=== PATIENT | female | born 1945 | race Caucasian/White ===

== ENCOUNTER 2017-03-04 08:42 | Inpatient (IN) ==
[2017-03-04] MEDS ORDERED: ONDANSETRON 4 MG/2 ML VIAL IV STA (09:45)
[2017-03-04] MEDS ORDERED: KETOROLAC 30 MG/1 ML VIAL IV STA (09:45)
[2017-03-04] MEDS ORDERED: ONDANSETRON 4 MG/2 ML VIAL ONE (09:52)
[2017-03-04] MEDS ORDERED: KETOROLAC 30 MG/1 ML VIAL ONE (09:52)
--- NOTE | 2017-03-04 09:57 | Emergency Department Note ---
Trish Lopez Brittany, am scribing for, and in the presence of, Ruben Delaney MD 09:51. Rhett Lopez Charles R, MD, personally performed the services described in this documentation, ascribed by Fanny Chambers in my presence, and it is both accurate and complete [id number] . Arrival - Arrival Chief Complaint: Fall Stated Complaint: fall/knee pain ED Nursing Triage Note: pt reports that she fell twice last night. c/o pain to both legs. Mode of Arrival: Stretcher Limitations: No Limitations Source: Patient Time Seen by Provider: 03/04/17 09:29 - History of Present Illness HPI Narrative: This is a 71 y/o white female, who presents to thr ED with c/o left hip and knee pain and right shoulder pain S/P fall which happened last night. She states she has been confused for a few days. She reports she has a small dog and has been falling more and more since the dog has been inside. She notes left hip is tender to the touch. She reports her right shoulder has been hurting for "a while" and every time she gets an appointment with a orthopedic MD she cancels it. Pt has no other complaints/pain in the ED at this time. Pt has a PMHx of HTN and arthritis. Pt has had an appendectomy, hysterectomy and orthopedic surgery. Pt denies a family medical Hx. Pt denies a social Hx. Pt uses a walker/cane for ambulation and lives with her daughter. Onset (ago): hour(s) (Happened last night) Consistency: constant Severity: moderate Allergies/Adverse Reactions: Allergies Allergy/AdvReac Type Severity Reaction Status Date / Time codeine Allergy Severe RASH Verified 12/04/16 12:32 sulfamethoxazole Allergy Severe RASH Verified 12/04/16 12:32 [From Bactrim] trimethoprim [From Bactrim] Allergy Severe RASH Verified 12/04/16 12:32 Home Medications: Home Medications Medication Instructions Recorded Confirmed Type Metoprolol Tartrate 100 mg PO BID 03/24/16 03/04/17 History Triamterene/Hydrochlorothiazid 1 each PO QAM 03/24/16 03/04/17 History [Triamterene-Hctz 37.5-25 mg Cp] Zolpidem Tartrate [Ambien] 10 mg PO BEDTIME PRN 03/24/16 03/04/17 History Aspirin EC Tab 81 mg PO QPM 12/04/16 03/04/17 History Meloxicam 15 mg PO QAM 12/04/16 03/04/17 History Sertraline HCl 50 mg PO BEDTIME 12/04/16 03/04/17 History Oxycodone HCl/Acetaminophen 1 tablet PO BID PRN 03/04/17 03/04/17 History [Oxycodone-Acetaminophen 10-325] Rosuvastatin Calcium [Rosuvastatin 10 mg PO BEDTIME 03/04/17 03/04/17 History Calcium] Review of System - Review of System 12 point system: reviewed and no additional remarkable complaints except as stated - Review of System Review of Systems: Fall Musculoskeletal: Present: arm pain (Right shoulder), leg pain (Left hip and left knee pain ) Neurological: Present: confusion, abnormal gait Medical,Surgical,& Family Hx - Medical History Cardio: History of: Hypertension Neurology: No history of: Seizures HEENT: History of: Eye Problem (Cataracts;Glasses), Dental Problems (Missing) Respiratory: No history of: Pneumonia (No Pneum Vac), Respiratory Problems (Never had Flu Vac) Musculoskeletal: History of: Musculoskeletal Problems (Arthritis) Other: No history of: Anesthesia Reactions, Cancer - Surgical History HEENT Surgeries: Patient denies: Eye Surgery (03/25/[address] Staples; 05/06/16 Sched for Lt) Abdominal Surgeries: Surgical HX of: Appendectomy Patient denies: Colonoscopy Reproductive Surgeries: Surgical HX of;: Hysterectomy (Partial) Orthopedic Surgeries: Surgical HX of;: Orthopedic Surgery (Lt Elbox Fx 3 Screws) - Social History Smoking Status: Unknown if ever smoked Lives With:: Children Functional capacity: uses cane/walker Exam Vital Signs: Vital Signs Temperature 97.8 F 03/04/17 08:58 Pulse Rate 67 03/04/17 10:30 Respiratory Rate 20 03/04/17 10:30 Blood Pressure 146/89 03/04/17 10:30 O2 Sat by Pulse Oximetry 100 03/04/17 10:30 - General General appearance: alert, in distress (Pt is in pain ), obese - Head Head exam: Present: normal inspection - Eye Eye exam: Present: PERRL, EOMI. Absent: nystagmus, miosis, mydriasis - ENT ENT exam: Present: mucous membranes moist - Neck Neck exam: Present: full ROM. Absent: tenderness - Chest Chest inspection: Present: symmetric chest wall rise. Absent: tenderness - Respiratory Respiratory exam: Present: rales (Bilateral rales). Absent: normal lung sounds bilaterally, respiratory distress - Cardiovascular Cardiovascular exam: Present: regular rate, normal rhythm, normal heart sounds. Absent: murmur, rubs, gallop, clicks, JVD - Abdominal Exam Abdominal exam: Present: soft, normal bowel sounds. Absent: tenderness - Rectal Exam Rectal exam: Present: deferred - Extremities Exam Extremities exam: Present: normal capillary refill, pedal edema. Absent: tenderness - Back Exam Back exam: Present: full ROM. Absent: tenderness, muscle spasm, rashes - Neurological Exam Neurological exam: Present: alert, oriented X3, CN II-XII intact. Absent: motor sensory deficit - Psychiatric Psychiatric exam: Present: normal affect, normal mood. Absent: agitated, anxious, flat affect - Skin Skin exam: Present: warm, dry, intact, normal color. Absent: rash, cyanosis, diaphoresis Course - Consultations Consultation #1: Hospitalist will admit patient Time: 12:07 Results - Labs CBC & BMP: 03/04/17 10:49 03/04/17 10:49 Lab Results: I have reviewed the patients labs Labs: Laboratory Tests 03/04/17 03/04/17 03/04/17 10:49 10:49 10:49 WBC 8.1 RBC 3.84 Hgb 11.7 L Hct 34.3 L MCV 89.3 MCH 31 MCHC 34.1 RDW 12.7 Plt Count 230 MPV 10.0 Neut % (Auto) 66.9 Lymph % (Auto) 21.0 L [place] % (Auto) 5.5 Eos % (Auto) 5.3 Baso % (Auto) 0.9 H Neut # (Auto) 5.4 Lymph # (Auto) 1.7 [place] # (Auto) 0.5 Eos # (Auto) 0.4 Baso # (Auto) 0.1 Immature Gran % 0.4 Nucleated RBC % 0.0 Immature Gran # 0.03 Nucleated RBCs # 0.00 Immature Plt Fraction 0.0 INR 1.0 PT Patient/Control Mix 10.3 Urine Color Yellow Urine Appearance Clear Urine pH 7.0 Ur Specific [place] 1.009 Urine Protein Negative Urine Glucose (UA) Negative Urine Ketones Negative Urine Blood Small Urine Nitrate Negative Urine Bilirubin Negative Urine Urobilinogen < 2.0 H Urine Leukocytes Small H Urine RBC 10 Urine WBC 5 Ur Squamous Epith Cells Occasional Urine Bacteria Occasional Urine Mucus Occasional - Diagnostic Findings Procedure: Chest x-ray: report reviewed by me, other (Stable cardiomegaly. No acute caridopulmonary process comared ot the previous study. ), CT: report reviewed by me (Head CT: No evidence of acute injury or significant change demonstrated. ), X-ray: report reviewed by me (Hip x-ray: Mild osteoarthritis left hip. Degenerative disc disease lower lumbar spine. No definite acute process. Tib/Fib X-ray: No acute fracture. Osteoarthritis left knee. Knee X-ray: No acute fracture. Osteoarthritis left knee. Femur X-ray: No acute fracture. Osteoarthritis left knee. Shoulder X-ray: Prominent osteoarthritis. No acute fracture) Disposition Clinical Impression: Mechanical fall, Contusion of left lower extremity, Confusion, Syncope, UTI ( urinary tract infection), Mild CHF Case discussed with: patient, patient's family Disposition: Still a Patient Condition: Stable Time of Disposition: 12:06
--- NOTE | 2017-03-04 10:14 | CT Report ---
CT brain Indication: Head injury, fall Comparison: 04 December 2016 Technique: Axial CT imaging of the brain is performed without contrast with 3 mm increments. Findings: No evidence of hemorrhage, mass mass effect midline shift or acute infarct seen. There is moderate diffuse cerebral atrophy. There are areas of decreased density seen within the white matter. Otherwise the brain parenchyma attenuation and differentiation appears within normal limits. The ventricles and cisterns are normal in caliber. No cranial or skull base abnormality is identified. Impression: No evidence of acute injury or significant change demonstrated. This CT exam was performed using one or more the following dose reduction techniques: Automated exposure control, adjustment of the MA and/or KV according to patient size, or use of iterative reconstruction technique. PROCEDURE INTERPRETED AT [facility] DEPARTMENT OF RADIOLOGY Final Report Signed by: Dr. Andrea Seth
--- NOTE | 2017-03-04 10:29 | XRay Report ---
History: Shortness of breath Date: 03/04/2017 Study: Chest x-ray single view portable Comparison exam: December 04, 2016 There is mild cardiomegaly. There is no mediastinal mass. The pulmonary vasculature is not engorged. The lungs and pleural spaces are clear. There is no acute osseous abnormality. Degenerative changes of the shoulders are present bilaterally as before. Impression: Stable cardiomegaly. No acute cardiopulmonary process compared to the previous study PROCEDURE INTERPRETED AT [facility] DEPARTMENT OF RADIOLOGY Final Report Signed by: Dr. Alma Chaudhari
--- NOTE | 2017-03-04 10:32 | XRay Report ---
History: Hip pain after fall Date: 03/04/2017 Study: Left hip 2 views to include AP pelvis Comparison exam: No previous similar There is no fracture, dislocation, or focal destructive osseous abnormality. There is mild osteophyte formation of the left hip, though no significant joint space narrowing. There is moderate degenerative disc narrowing in the lower lumbar spine where partially visualized. Impression: Mild osteoarthritis left hip. Degenerative disc disease lower lumbar spine. No definite acute process PROCEDURE INTERPRETED AT [facility] DEPARTMENT OF RADIOLOGY Final Report Signed by: Dr. Alma Chaudhari
--- NOTE | 2017-03-04 10:33 | DUMMY REPORT TO COMPLETE ORDER ---
See report scanned to EMR
--- NOTE | 2017-03-04 10:35 | XRay Report ---
History: Shoulder pain after fall. History of rotator cuff injury Date: 03/04/2017 Study: Right shoulder 2 views Comparison exam: No previous similar There is no fracture, dislocation, or focal destructive osseous abnormality. There is prominent osteophyte formation and joint space narrowing and eburnation of the right glenohumeral joint. There is moderate hypertrophic change of the acromioclavicular joint. Impression: Prominent osteoarthritis. No acute fracture PROCEDURE INTERPRETED AT [facility] DEPARTMENT OF RADIOLOGY Final Report Signed by: Dr. Alma Chaudhari
--- NOTE | 2017-03-04 10:36 | XRay Report ---
History: Leg pain after fall Date: 03/04/2017 Study: Left femur AP and lateral Comparison exam: No previous similar There is no fracture, dislocation, or focal destructive osseous abnormality. There is osteoarthritis of the left knee which will be detailed on the left knee x-ray from the same day. Impression: No acute fracture. Osteoarthritis left knee PROCEDURE INTERPRETED AT [facility] DEPARTMENT OF RADIOLOGY Final Report Signed by: Dr. Alma Chaudhari
--- NOTE | 2017-03-04 10:37 | XRay Report ---
History: Knee pain after fall Date: 03/04/2017 Study: Left knee 3 views Comparison exam: No previous similar There is no fracture, dislocation, or focal destructive osseous abnormality. There is some moderate or greater osteophyte formation in all 3 joint compartments. There is prominent joint space narrowing and moderate eburnation in the medial compartment of the knee. The bones are well-mineralized. Impression: No acute fracture. Osteoarthritis left knee PROCEDURE INTERPRETED AT [facility] DEPARTMENT OF RADIOLOGY Final Report Signed by: Dr. Alma Chaudhari
--- NOTE | 2017-03-04 10:39 | XRay Report ---
History: Leg pain Date: 03/04/2017 Study: Left tibia and fibula 2 views Comparison exam: No previous There is no fracture, dislocation, or focal destructive osseous abnormality. There is osteoarthritis of the left knee as detailed on the left knee x-ray from the same day. Impression: No acute fracture. Osteoarthritis left knee PROCEDURE INTERPRETED AT [facility] DEPARTMENT OF RADIOLOGY Final Report Signed by: Dr. Alma Chaudhari
[2017-03-04 10:57] LABS: Basophils # 0.1 10*3/uL (0.0-0.2); Basophils % 0.9 % (0.0-0.8); Eosinophils # 0.4 10*3/uL (0.0-0.87); Eosinophils % 5.3 % (0.00-10.9); Hematocrit 34.3 VOL% (35.7-47.0); Hemoglobin 11.7 GM/DL (12.0-16.0); Immature Granulocytes % 0.4 %; Immature Granulocytes Absolute 0.03 #; Lymphocytes # 1.7 10*3/uL (1.4-4.0); Mean Corpuscular HGB Conc 34.1 GM/DL (32-36); Mean Corpuscular Hemoglobin 31 PG (27-34); Mean Corpuscular Volume 89.3 FL (87-102); Monocytes # 0.5 10*3/uL (0.11-0.8); Monocytes % 5.5 % (1.7-12.7); Neutrophils # 5.4 10*3/uL (1.4-7.4); Neutrophils % 66.9 % (38.7-73.9); Platelet Count 230 T/CUMM (130-400); Red Blood Count 3.84 MC/CUMM (3.8-5.5); Red Cell Distribution Width 12.7 % (9.3-17.3); White Blood Count 8.1 T/CUMM (4-12)
[2017-03-04 11:02] LABS: Apearance,Urine CLEAR (Clear); Bacteria,Urine Occasional /HPF (Few); Bilirubin,Urine Negative (Negative); Blood, Urine Small mg/dL (Negative); Glucose,Urine (UA) Negative (Negative); Ketones,Urine Negative (Negative); Mucus,Urine Occasional /LPF (Occasional); Nitrite,Urine Negative (Negative); Protein,Urine Negative; RBC,Urine 10 /HPF (0-4); Squamous Epithelial Cell,Urine Occasional /HPF (0-10); Urine Color Yellow (Yellow); Urine Specific Gravity 1.009 (1.001-1.035); Urine Urobilinogen < 2.0 EU/DL (0.2-1.0); WBC,Urine 5 /HPF (0-6)
[2017-03-04 11:04] LABS: PT Patient Result 10.3 SECS
[2017-03-04] MEDS ORDERED: cefTRIAXone 1,000 MG in SODIUM CHLORIDE 0.9% 100 ML IV STA (11:07)
[2017-03-04] MEDS ORDERED: cefTRIAXone 1,000 MG VIAL ONE (11:33)
[2017-03-04 11:34] LABS: Alanine Aminotransferase 12 U/L (13-56); Albumin 3.6 G/DL (3.4-5.0); Alkaline Phosphatase 120 U/L (45-117); Aspartate Amino Transferase 20 U/L (0-37); Blood Urea Nitrogen 27 MG/DL (7-18); Calcium 9.2 MG/DL (8.5-10.1); Glucose 113 MG/DL (74-106); Magnesium 1.9 MG/DL (1.8-2.4); Osmolality,Calculated 278.8 MOS/KG (273-304); Potassium 4.4 MMOL/L (3.5-5.1); Sodium 137 MMOL/L (136-145); Total Protein 7.5 G/DL (6.4-8.3); Troponin I Only < 0.015 NG/ML (0.00-0.045)
[2017-03-04] MEDS ORDERED: FUROSEMIDE 40 MG/4 ML VIAL IV STA (11:38)
[2017-03-04] MEDS ORDERED: ALBUTEROL/IPRATROPIUM 3 ML NEB RESP TX STA (11:38)
[2017-03-04 11:49] LABS: Barbiturates Screen,Urine Negative (Negative); Benzodiazepines Screen,Urine Positive (Negative); Cannabinoid Screen,Urine Negative (Negative); Opiate Screen,Urine Negative (Negative); Phencyclidine Screen,Urine Negative (Negative)
[2017-03-04] MEDS ORDERED: ONDANSETRON 4 MG/2 ML VIAL IV PRN (12:55)
[2017-03-04] MEDS ORDERED: ACETAMINOPHEN 325 MG TABLET PO PRN (12:55)
--- NOTE | 2017-03-04 13:13 | Hospitalist History & Physical ---
<Therese Park - Last Filed: 03/04/17 12:59> Assessment and Plan - Time spent with patient Time spent with patient: Greater than 30 minutes (1) Confusion Status: Acute Assessment and plan: Admit - 03/04/17 - -UTI- urine culture obtained - pending results: start Rocephin -Confusion - will need to review current medication - may need changes made with home medications -could confusion be related to VS dementia developing -Further recommendations will follow per Dr Gayle Current Visit: Yes (2) UTI (urinary tract infection) Status: Acute Current Visit: Yes History of Present Illness Chief complaint: AMS, Fell at home, UTI History of present illness: Ms. Tobar is a 71 year old white female w/PMHx HTN, GERD, Arthritis presented to the ED for further evaluation of increased confusion x1 week , fell at home, with left hip,shoulder pain. She reports getting her time of day mixed up. She will think its 8:30 at night when it is really 8;30 in the morning. The daughter in the room states that this has been happening more in the past week. She reports occasional shortness of breath. She reports occasional burning with urination without flank pain. She denies chest pain, fever, chills, cough. IN ED: WBC: normal; H&H Stable 11.7&34.3. BUN 27. Creatinine 1.60. Glucose 113. ALT 12. Alkaline Phosphatase 120. BNP 292. Urinalysis small leukocytes, WBC 5,. Toxicology positive for benzodiazepines. LEFT hip xr: nothing acute. Shoulder xray right nothing acute. Chest Xray: stable cardiomegaly, nothing acute. Femur xray: nothing acute. Head CT: nothing acute. Knee xray left: nothing acute. She denies amoking, alcohol, or drug use. She does not take Flu vaccine. Surgical hx: hysterectomy, appendectomy, Upper and Lower GI several years ago. She uses a walker at home for ambulation, lives with her daughter. PCP: Dr Quan Vee ([facility]) After discussion with Dr Delaney in ED and Dr Gayle with Hospital Medicine, it was agreed to admit patient for further evaluation of confusion, UTI. Home Medications Medication Instructions Recorded Confirmed Type Metoprolol Tartrate 100 mg PO BID 03/24/16 03/04/17 History Triamterene/Hydrochlorothiazid 1 each PO QAM 03/24/16 03/04/17 History [Triamterene-Hctz 37.5-25 mg Cp] Zolpidem Tartrate [Ambien] 10 mg PO BEDTIME PRN 03/24/16 03/04/17 History Aspirin EC Tab 81 mg PO QPM 12/04/16 03/04/17 History Meloxicam 15 mg PO QAM 12/04/16 03/04/17 History Sertraline HCl 50 mg PO BEDTIME 12/04/16 03/04/17 History Oxycodone HCl/Acetaminophen 1 tablet PO BID PRN 03/04/17 03/04/17 History [Oxycodone-Acetaminophen 10-325] Rosuvastatin Calcium [Rosuvastatin 10 mg PO BEDTIME 03/04/17 03/04/17 History Calcium] Allergies Allergy/AdvReac Type Severity Reaction Status Date / Time codeine Allergy Severe RASH Verified 12/04/16 12:32 sulfamethoxazole Allergy Severe RASH Verified 12/04/16 12:32 [From Bactrim] trimethoprim [From Bactrim] Allergy Severe RASH Verified 12/04/16 12:32 Medical,Surgical,& Family Hx - Medical History Cardio: History of: Hypertension Neurology: No history of: Seizures HEENT: History of: Eye Problem (Cataracts;Glasses), Dental Problems (Missing) Respiratory: No history of: Pneumonia (No Pneum Vac), Respiratory Problems (Never had Flu Vac) Musculoskeletal: History of: Musculoskeletal Problems (Arthritis) Other: No history of: Anesthesia Reactions, Cancer - Surgical History HEENT Surgeries: Patient denies: Eye Surgery (03/25/[address] Staples; 05/06/16 Sched for Lt) Abdominal Surgeries: Surgical HX of: Appendectomy Patient denies: Colonoscopy Reproductive Surgeries: Surgical HX of;: Hysterectomy (Partial) Orthopedic Surgeries: Surgical HX of;: Orthopedic Surgery (Lt Elbox Fx 3 Screws) - Social History Smoking Status: Never smoker Frequency of Alcohol Use: None Type of Drug Use: None Marital Status: Single Lives With:: Children (daughter) Functional capacity: uses cane/walker 12 point system: reviewed and no additional remarkable complaints except as stated - Constitutional Constitutional: Present: frequent falls. Absent: chills, fever(s) - Cardiovascular Cardiovascular: Present: dyspnea, dyspnea on exertion. Absent: chest pain at rest, chest pain with activity, edema - Gastrointestinal Gastrointestinal: Absent: abdominal pain - Genitourinary Genitourinary: Present: dysuria (occasional). Absent: flank pain - Musculoskeletal Musculoskeletal: Present: arthralgias (arthritis) Exam - Constitutional Vitals: Period Temp Pulse Resp BP Sys/Weller Pulse Ox Last 24 Hr 97.8 F-97.8 F 67-78 18-20 131-174/82-94 92-100 General appearance: normal weight, no acute distress - Head Head exam: Present: normal inspection - Eye Eye exam: Present: EOMI Pupils: Present: BRUCE - Neck Neck exam: Present: normal inspection. Absent: thyromegaly - Respiratory Respiratory exam: Present: wheezes (left sided expriatory wheeze noted) - Cardiovascular Cardiovascular exam: Present: regular rate and rhythm - GI/Abdominal GI/Abdominal exam: Present: normal bowel sounds, soft. Absent: tenderness, rebound - Extremities Exam Extremities exam: Present: normal inspection. Absent: edema - Neurological Exam Neurological exam: Present: alert, oriented X3 - Psychiatric Psychiatric exam: Present: normal affect, normal mood. Absent: agitated, anxious - Skin Skin exam: Present: normal color, warm, dry Results - Labs CBC & BMP: 03/04/17 10:49 03/04/17 10:49 Lab Results: I have reviewed the past 24 hour labs - Impressions X-ray - hip -mild osteoarthritis left hip, degenerative disc disease lower lumbar spine, no definite acute process X-ray shoulder-prominent osteoarthritis, no acute fracture. X-ray femur-no acute fracture, osteoarthritis left knee X-ray knee-no acute fracture osteoarthritis left knee X-ray left tibia-fibula no acute fracture, osteoarthritis left Head CT-no evidence of acute injury or significant change demonstrated - Diagnostic Findings Procedure: Chest x-ray: report reviewed by me (Stable cardiomegaly,No acute cardiopulmonary process compared to previous) <Lon Gayle - Last Filed: 03/04/17 14:56> History of Present Illness History of present illness: Ms. Tobar is a 71 year old female with urinary tract infection and probable infectious encephalopathy. I have interviewed and examined the patient and reviewed all available laboratory and radiographic test results. I agree with the assessment and plans of nurse practitioner Therese Park. Ms. Tobar is being admitted to the hospital and begun on intravenous ceftriaxone and sodium chloride infusion. Exam - Constitutional Vitals: Period Temp Pulse Resp BP Sys/Weller Pulse Ox Last 24 Hr 97.6 F-97.8 F 67-84 18-20 121-174/74-98 92-100 Results - Labs CBC & BMP: 03/04/17 10:49 03/04/17 10:49
[2017-03-04] MEDS ORDERED: FUROSEMIDE 40 MG/4 ML VIAL ONE (13:48)
[2017-03-04] MEDS: SODIUM CHLORIDE 0.9% 1,000 ML IV SCH (16:27)
[2017-03-04] MEDS: ROSUVASTATIN 10 MG TABLET PO SCH (20:12)
[2017-03-04] MEDS: METOPROLOL TARTRATE 100 MG TABLET PO SCH (20:12)
[2017-03-04] MEDS: ASPIRIN EC 81 MG TABLET PO SCH (20:12)
[2017-03-04] MEDS: SERTRALINE 50 MG TABLET PO SCH (20:14)
[2017-03-05] MEDS: SODIUM CHLORIDE 0.9% 1,000 ML IV SCH ×2 (03:58→18:29)
[2017-03-05] MEDS: oxyCODONE/ACETAMINOPHEN 5-325 MG TABLET PO PRN ×2 (03:58→14:56)
[2017-03-05 04:00] LABS: Basophils % 0.8 % (0.0-0.8); Eosinophils # 0.3 10*3/uL (0.0-0.87); Eosinophils % 6.4 % (0.00-10.9); Hemoglobin 9.6 GM/DL (12.0-16.0); Immature Granulocytes % 0.4 %; Immature Granulocytes Absolute 0.02 #; Lymphocytes # 1.6 10*3/uL (1.4-4.0); Lymphocytes % 32.8 % (21.3-54.2); Mean Corpuscular HGB Conc 33.1 GM/DL (32-36); Mean Corpuscular Hemoglobin 30 PG (27-34); Mean Corpuscular Volume 91.2 FL (87-102); Mean Platelet Volume 10.6 FL (9.6-12.0); Monocytes # 0.4 10*3/uL (0.11-0.8); Monocytes % 7.5 % (1.7-12.7); Neutrophils # 2.5 10*3/uL (1.4-7.4); Neutrophils % 52.1 % (38.7-73.9); Platelet Count 207 T/CUMM (130-400); Red Blood Count 3.18 MC/CUMM (3.8-5.5); Red Cell Distribution Width 12.9 % (9.3-17.3); White Blood Count 4.8 T/CUMM (4-12)
[2017-03-05 04:37] LABS: Calcium 8.4 MG/DL (8.5-10.1); Osmolality,Calculated 285.4 MOS/KG (273-304); Potassium 4.5 MMOL/L (3.5-5.1); Risk Ratio 3.07; VLDL CHOLESTEROL 27.8 MG/DL
[2017-03-05] MEDS: METOPROLOL TARTRATE 100 MG TABLET PO SCH ×2 (10:11→20:04)
[2017-03-05] MEDS: MELOXICAM 7.5 MG TABLET PO SCH (10:11)
[2017-03-05] MEDS: TRIAMTERENE/HCTZ 37.5-25 MG CAPSULE PO SCH (10:11)
--- NOTE | 2017-03-05 10:22 | Hospitalist Progress Note ---
Assessment and Plan (1) Encephalopathy due to infection Status: Acute Current Visit: Yes (2) Chronic kidney disease, stage 3 Status: Acute Current Visit: Yes (3) Confusion Status: Acute Assessment and plan: She states that she has been having trouble with confusion and forgetfulness for an unspecified period of time prior to admission. She is concerned that she has Alzheimer's disease, which is a distinct possibility. A CT scan of the head demonstrated diffuse moderate cerebral atrophy and areas of decreased density seen within the white matter. I will start memantine 10 mg p.o. twice daily. Current Visit: Yes (4) UTI (urinary tract infection) Status: Acute Assessment and plan: Cultures have been negative. She is presently being treated with intravenous ceftriaxone. Current Visit: Yes (5) Anemia Status: Acute Assessment and plan: Her anemia is most probably anemia of chronic disease associated with her chronic kidney disease. I will obtain stools for Hemoccult analysis. Current Visit: Yes Qualifiers: Anemia type: unspecified type Qualified Code(s): D64.9 - Anemia, unspecified Hospitalist: Subjective Interval history: Ms. Tobar is doing much better today. She is awake and alert. She is not complaining of pain. Her major complaint is that of forgetfulness which she states has been a problem for an unspecified period of time prior to admission. She is presently being treated with intravenous ceftriaxone for her urinary tract infection. Exam - Constitutional Vitals: Period Temp Pulse Resp BP Sys/Weller Pulse Ox Last 24 Hr 97.2 F-98.5 F 67-87 18-20 118-174/62-98 92-100 General appearance: no acute distress, morbidly obese - Head Head exam: Present: normal inspection - Neck Neck exam: Present: normal inspection - Respiratory Respiratory exam: Present: clear to auscultation bilaterally - Cardiovascular Cardiovascular exam: Present: regular rate and rhythm - GI/Abdominal GI/Abdominal exam: Present: normal bowel sounds, soft, other (Nontender with no palpable masses or hepatosplenomegaly.) - Extremities Exam Extremities exam: Present: normal inspection - Neurological Exam Neurological exam: Present: alert, oriented X3 - Skin Skin exam: Present: normal color, warm, intact Results - Labs CBC & BMP: 03/05/17 02:58 03/05/17 02:58
[2017-03-05] MEDS: PANTOPRAZOLE 40 MG TABLET PO SCH (10:35)
[2017-03-05] MEDS: MEMANTINE 10 MG TABLET PO SCH ×2 (11:03→20:04)
[2017-03-05] MEDS: ASPIRIN EC 81 MG TABLET PO SCH (20:04)
[2017-03-05] MEDS: ZALEPLON 5 MG CAPSULE PO PRN (20:04)
[2017-03-05] MEDS: SERTRALINE 50 MG TABLET PO SCH (20:04)
[2017-03-05] MEDS: ROSUVASTATIN 10 MG TABLET PO SCH (20:04)
[2017-03-06 04:42] LABS: Basophils # 0.1 10*3/uL (0.0-0.2); Basophils % 0.9 % (0.0-0.8); Eosinophils # 0.5 10*3/uL (0.0-0.87); Eosinophils % 6.8 % (0.00-10.9); Hematocrit 30.6 VOL% (35.7-47.0); Hemoglobin 9.8 GM/DL (12.0-16.0); Immature Granulocytes % 0.6 %; Immature Granulocytes Absolute 0.04 #; Lymphocytes # 2.1 10*3/uL (1.4-4.0); Mean Corpuscular Hemoglobin 30 PG (27-34); Mean Corpuscular Volume 93.3 FL (87-102); Monocytes # 0.5 10*3/uL (0.11-0.8); Monocytes % 7.1 % (1.7-12.7); Neutrophils # 3.6 10*3/uL (1.4-7.4); Neutrophils % 53.6 % (38.7-73.9); Platelet Count 198 T/CUMM (130-400); Red Blood Count 3.28 MC/CUMM (3.8-5.5); Red Cell Distribution Width 13.1 % (9.3-17.3); White Blood Count 6.6 T/CUMM (4-12)
[2017-03-06] MEDS: SODIUM CHLORIDE 0.9% 1,000 ML IV SCH ×2 (04:57→20:03)
[2017-03-06 05:12] LABS: Calcium 8.6 MG/DL (8.5-10.1); Osmolality,Calculated 282.4 MOS/KG (273-304); Potassium 4.6 MMOL/L (3.5-5.1)
[2017-03-06] MEDS: MELOXICAM 7.5 MG TABLET PO SCH (09:50)
[2017-03-06] MEDS: MEMANTINE 10 MG TABLET PO SCH ×2 (09:50→20:07)
[2017-03-06] MEDS: TRIAMTERENE/HCTZ 37.5-25 MG CAPSULE PO SCH (09:50)
[2017-03-06] MEDS: METOPROLOL TARTRATE 100 MG TABLET PO SCH ×2 (09:51→20:07)
[2017-03-06] MEDS: PANTOPRAZOLE 40 MG TABLET PO SCH (09:51)
--- NOTE | 2017-03-06 10:02 | Hospitalist Progress Note ---
Assessment and Plan (1) Encephalopathy due to infection Status: Acute Assessment and plan: Resolved. Current Visit: Yes (2) Chronic kidney disease, stage 3 Status: Acute Assessment and plan: Her BUN and creatinine were 27 and 1.6 respectively on admission. They are 25 and 1.3 respectively today. Her GFR was 36 on admission and 50 today. She has had acute on chronic renal failure with stage III chronic kidney disease. Current Visit: Yes (3) Confusion Status: Acute Assessment and plan: She states that she has been having trouble with confusion and forgetfulness for an unspecified period of time prior to admission. She is concerned that she has Alzheimer's disease, which is a distinct possibility. A CT scan of the head demonstrated diffuse moderate cerebral atrophy and areas of decreased density seen within the white matter. I have started memantine 10 mg p.o. twice daily. Current Visit: Yes (4) UTI (urinary tract infection) Status: Acute Assessment and plan: Cultures have been negative. She is presently being treated with intravenous ceftriaxone. Current Visit: Yes (5) Anemia Status: Acute Assessment and plan: Her anemia is most probably anemia of chronic disease associated with her chronic kidney disease. Her hematocrit and hemoglobin are 30.6 and 9.8 respectively today. I have ordered stools for Hemoccult analysis. Current Visit: Yes Qualifiers: Anemia type: unspecified type Qualified Code(s): D64.9 - Anemia, unspecified Hospitalist: Subjective Interval history: Patient is doing somewhat better today. Her major complaint is that of weakness. She is ambulating with physical therapy. I will continue her intravenous antibiotics. I have discussed with her probable discharge tomorrow. Exam - Constitutional Vitals: Period Temp Pulse Resp BP Sys/Weller Pulse Ox Last 24 Hr 97.0 F-98.0 F 70-82 17-20 131-154/72-89 92-96 General appearance: no acute distress - Head Head exam: Present: normal inspection - Neck Neck exam: Present: normal inspection - Respiratory Respiratory exam: Present: clear to auscultation bilaterally - Cardiovascular Cardiovascular exam: Present: regular rate and rhythm - GI/Abdominal GI/Abdominal exam: Present: normal bowel sounds, soft, other (Nontender with no palpable masses or hepatosplenomegaly.) - Extremities Exam Extremities exam: Present: normal inspection - Neurological Exam Neurological exam: Present: alert, oriented X3 - Skin Skin exam: Present: normal color, warm, intact Results - Labs CBC & BMP: 03/06/17 03:23 03/06/17 03:23
[2017-03-06] MEDS: oxyCODONE/ACETAMINOPHEN 5-325 MG TABLET PO PRN (15:25)
[2017-03-06] MEDS: SERTRALINE 50 MG TABLET PO SCH (20:07)
[2017-03-06] MEDS: ASPIRIN EC 81 MG TABLET PO SCH (20:07)
[2017-03-06] MEDS: ROSUVASTATIN 10 MG TABLET PO SCH (20:07)
[2017-03-06] MEDS: ZALEPLON 5 MG CAPSULE PO PRN (22:54)
[2017-03-07 03:08] LABS: Basophils % 0.8 % (0.0-0.8); Eosinophils # 0.4 10*3/uL (0.0-0.87); Eosinophils % 8.8 % (0.00-10.9); Hematocrit 28.1 VOL% (35.7-47.0); Hemoglobin 9.3 GM/DL (12.0-16.0); Immature Granulocytes % 0.8 %; Immature Granulocytes Absolute 0.04 #; Lymphocytes # 1.7 10*3/uL (1.4-4.0); Lymphocytes % 34.7 % (21.3-54.2); Mean Corpuscular HGB Conc 33.1 GM/DL (32-36); Mean Corpuscular Hemoglobin 30 PG (27-34); Mean Corpuscular Volume 91.5 FL (87-102); Mean Platelet Volume 10.2 FL (9.6-12.0); Monocytes # 0.4 10*3/uL (0.11-0.8); Monocytes % 7.2 % (1.7-12.7); Neutrophils # 2.4 10*3/uL (1.4-7.4); Neutrophils % 47.7 % (38.7-73.9); Platelet Count 179 T/CUMM (130-400); Red Blood Count 3.07 MC/CUMM (3.8-5.5); Red Cell Distribution Width 13.1 % (9.3-17.3)
[2017-03-07 03:35] LABS: Calcium 8.5 MG/DL (8.5-10.1); Potassium 4.1 MMOL/L (3.5-5.1)
[2017-03-07] MEDS: SODIUM CHLORIDE 0.9% 1,000 ML IV SCH ×2 (09:34→21:00)
[2017-03-07] MEDS: MEMANTINE 10 MG TABLET PO SCH ×2 (09:36→21:17)
[2017-03-07] MEDS: TRIAMTERENE/HCTZ 37.5-25 MG CAPSULE PO SCH (09:36)
[2017-03-07] MEDS: MELOXICAM 7.5 MG TABLET PO SCH (09:36)
--- NOTE | 2017-03-07 09:36 | Hospitalist Progress Note ---
Assessment and Plan (1) Encephalopathy due to infection Status: Acute Assessment and plan: Resolved. Current Visit: Yes (2) Chronic kidney disease, stage 3 Status: Acute Assessment and plan: Her BUN and creatinine were 27 and 1.6 respectively on admission. They are 18 and 1.2 respectively today. Her GFR was 36 on admission and 55 today. She has had acute on chronic renal failure with stage III chronic kidney disease. Current Visit: Yes (3) Confusion Status: Acute Assessment and plan: She states that she has been having trouble with confusion and forgetfulness for an unspecified period of time prior to admission. She is concerned that she has Alzheimer's disease, which is a distinct possibility. A CT scan of the head demonstrated diffuse moderate cerebral atrophy and areas of decreased density seen within the white matter. I have started memantine 10 mg p.o. twice daily. Current Visit: Yes (4) UTI (urinary tract infection) Status: Acute Assessment and plan: Cultures have been negative. She is presently being treated with intravenous ceftriaxone. Today is day 4 of antibiotics. Current Visit: Yes (5) Anemia Status: Acute Assessment and plan: Her anemia is most probably anemia of chronic disease associated with her chronic kidney disease. Her hematocrit and hemoglobin are 28.1 and 9.3 respectively today. I have ordered stools for Hemoccult analysis. Current Visit: Yes Qualifiers: Anemia type: unspecified type Qualified Code(s): D64.9 - Anemia, unspecified Hospitalist: Subjective Interval history: Patient continues on intravenous ceftriaxone for urinary tract infection. Her major complaint is weakness. She does not feel strong enough to go home. I will consult case management for possible swing bed placement. Exam - Constitutional Vitals: Period Temp Pulse Resp BP Sys/Weller Pulse Ox Last 24 Hr 97.4 F-98.7 F 63-78 16-20 114-150/58-80 93-100 General appearance: no acute distress, over weight - Head Head exam: Present: normal inspection - Neck Neck exam: Present: normal inspection - Respiratory Respiratory exam: Present: clear to auscultation bilaterally - Cardiovascular Cardiovascular exam: Present: regular rate and rhythm - GI/Abdominal GI/Abdominal exam: Present: normal bowel sounds, soft, other (Nontender with no palpable masses or hepatosplenomegaly.) - Extremities Exam Extremities exam: Present: normal inspection - Skin Skin exam: Present: normal color, warm, intact Results - Labs CBC & BMP: 03/07/17 02:49 03/07/17 02:49
[2017-03-07] MEDS: METOPROLOL TARTRATE 100 MG TABLET PO SCH ×2 (09:37→21:17)
[2017-03-07] MEDS: PANTOPRAZOLE 40 MG TABLET PO SCH (09:37)
[2017-03-07] MEDS: oxyCODONE/ACETAMINOPHEN 5-325 MG TABLET PO PRN (13:24)
[2017-03-07] MEDS: ROSUVASTATIN 10 MG TABLET PO SCH (21:17)
[2017-03-07] MEDS: ZALEPLON 5 MG CAPSULE PO PRN (21:17)
[2017-03-07] MEDS: SERTRALINE 50 MG TABLET PO SCH (21:17)
[2017-03-07] MEDS: ASPIRIN EC 81 MG TABLET PO SCH (21:17)
[2017-03-08] MEDS: ALBUTEROL/IPRATROPIUM 3 ML NEB RESP TX SCH ×5 (03:15→19:07)
[2017-03-08] MEDS: MELOXICAM 7.5 MG TABLET PO SCH (09:09)
[2017-03-08] MEDS: PANTOPRAZOLE 40 MG TABLET PO SCH (09:10)
[2017-03-08] MEDS: TRIAMTERENE/HCTZ 37.5-25 MG CAPSULE PO SCH (09:10)
[2017-03-08] MEDS: MEMANTINE 10 MG TABLET PO SCH ×2 (09:10→21:48)
[2017-03-08] MEDS: METOPROLOL TARTRATE 100 MG TABLET PO SCH ×2 (09:10→21:47)
--- NOTE | 2017-03-08 09:46 | Hospitalist Progress Note ---
Assessment and Plan (1) Encephalopathy due to infection Status: Acute Assessment and plan: Resolved. Current Visit: Yes (2) Chronic kidney disease, stage 3 Status: Acute Assessment and plan: Her BUN and creatinine were 27 and 1.6 respectively on admission. They were 18 and 1.2 respectively yesterday. Her GFR was 36 on admission and 55 yesterday. She has had acute on chronic renal failure with stage III chronic kidney disease. Current Visit: Yes (3) Confusion Status: Acute Assessment and plan: She states that she has been having trouble with confusion and forgetfulness for an unspecified period of time prior to admission. She is concerned that she has Alzheimer's disease, which is a distinct possibility. A CT scan of the head demonstrated diffuse moderate cerebral atrophy and areas of decreased density seen within the white matter. I have started memantine 10 mg p.o. twice daily. Current Visit: Yes (4) UTI (urinary tract infection) Status: Acute Assessment and plan: Cultures have been negative. She is presently being treated with intravenous ceftriaxone. Today is day 5 of antibiotics. Current Visit: Yes (5) Anemia Status: Acute Assessment and plan: Her anemia is most probably anemia of chronic disease associated with her chronic kidney disease. Her hematocrit and hemoglobin are 28.1 and 9.3 respectively today. I have ordered stools for Hemoccult analysis. Current Visit: Yes Qualifiers: Anemia type: unspecified type Qualified Code(s): D64.9 - Anemia, unspecified (6) Weakness Status: Acute Assessment and plan: Her major problem at this time is weakness. Physical therapy is working with her. Case management is attempting to place her in a swing bed post discharge. Current Visit: Yes Hospitalist: Subjective Interval history: Ms. Tobar has no new complaints. She continues to complain of weakness. Case management is attempting to place her in a swing bed. In the meantime, she continues on intravenous ceftriaxone for her urinary tract infection. Exam - Constitutional Vitals: Period Temp Pulse Resp BP Sys/Weller Pulse Ox Last 24 Hr 97.4 F-99.3 F 69-84 16-20 117-152/50-93 93-100 General appearance: no acute distress, over weight - Head Head exam: Present: normal inspection - Neck Neck exam: Present: normal inspection - Respiratory Respiratory exam: Present: clear to auscultation bilaterally - Cardiovascular Cardiovascular exam: Present: regular rate and rhythm - GI/Abdominal GI/Abdominal exam: Present: normal bowel sounds, soft, other (Nontender with no palpable masses or hepatosplenomegaly.) - Extremities Exam Extremities exam: Present: normal inspection - Neurological Exam Neurological exam: Present: alert, oriented X3 - Skin Skin exam: Present: normal color, warm, intact Results - Labs CBC & BMP: 03/07/17 02:49 03/07/17 02:49
[2017-03-08] MEDS: oxyCODONE/ACETAMINOPHEN 5-325 MG TABLET PO PRN (15:29)
[2017-03-08] MEDS: SODIUM CHLORIDE 0.9% 1,000 ML IV SCH (15:30)
[2017-03-08] MEDS: ROSUVASTATIN 10 MG TABLET PO SCH (21:46)
[2017-03-08] MEDS: ASPIRIN EC 81 MG TABLET PO SCH (21:47)
[2017-03-08] MEDS: SERTRALINE 50 MG TABLET PO SCH (21:48)
[2017-03-09] MEDS: ALBUTEROL/IPRATROPIUM 3 ML NEB RESP TX SCH ×4 (00:08→11:15)
[2017-03-09] MEDS: SODIUM CHLORIDE 0.9% 1,000 ML IV SCH (01:09)
[2017-03-09] MEDS: oxyCODONE/ACETAMINOPHEN 5-325 MG TABLET PO PRN (02:16)
[2017-03-09 04:17] LABS: Calcium 8.6 MG/DL (8.5-10.1); Osmolality,Calculated 282.3 MOS/KG (273-304); Potassium 4.1 MMOL/L (3.5-5.1)
[2017-03-09] MEDS: MELOXICAM 7.5 MG TABLET PO SCH (08:48)
[2017-03-09] MEDS: PANTOPRAZOLE 40 MG TABLET PO SCH (08:49)
[2017-03-09] MEDS: METOPROLOL TARTRATE 100 MG TABLET PO SCH (08:49)
[2017-03-09] MEDS: MEMANTINE 10 MG TABLET PO SCH (08:49)
[2017-03-09] MEDS: TRIAMTERENE/HCTZ 37.5-25 MG CAPSULE PO SCH (08:49)
--- NOTE | 2017-03-09 09:26 | Discharge Summary ---
Hospital Course - Hospital Course Hospital Course: Ms. Tobar is a 71 year old white female w/PMHx HTN, GERD, Arthritis presented to the ED for further evaluation of increased confusion x1 week , fell at home, with left hip,shoulder pain. She reports getting her time of day mixed up. She will think its 8:30 at night when it is really 8;30 in the morning. The daughter in the room states that this has been happening more in the past week. She reports occasional shortness of breath. She reports occasional burning with urination without flank pain. She denies chest pain, fever, chills, cough. IN ED: WBC: normal; H&H Stable 11.7&34.3. BUN 27. Creatinine 1.60. Glucose 113. ALT 12. Alkaline Phosphatase 120. BNP 292. Urinalysis small leukocytes, WBC 5,. Toxicology positive for benzodiazepines. LEFT hip xr: nothing acute. Shoulder xray right nothing acute. Chest Xray: stable cardiomegaly, nothing acute. Femur xray: nothing acute. Head CT: nothing acute. Knee xray left: nothing acute. She denies amoking, alcohol, or drug use. She does not take Flu vaccine. Surgical hx: hysterectomy, appendectomy, Upper and Lower GI several years ago. She uses a walker at home for ambulation, lives with her daughter. Patient was admitted to the hospital with a urinary tract infection. She was treated with intravenous ceftriaxone. She experienced significant debility and weakness during her hospitalization. Physical therapy was consulted. She recovered well from her urinary tract infection. At the time of her discharge she still complains of substantial weakness. Diagnosis - Discharge Diagnosis (1) Encephalopathy due to infection Status: Acute (2) Chronic kidney disease, stage 3 Status: Chronic (3) Confusion Status: Chronic (4) UTI (urinary tract infection) Status: Acute (5) Anemia Status: Chronic (6) Weakness Status: Acute Discharge Plan - Discharge Data Disposition: Swing Bed, [facility] Based, [facility] Condition at Discharge: Stable Discharge Diet: advance to your usual diet Activity: as per physical therapy - Discharge Medications New Memantine [Namenda] 10 mg PO BID tablet Continue Triamterene/Hydrochlorothiazid [Triamterene-Hctz 37.5-25 mg Cp] 1 each PO QAM Zolpidem Tartrate [Ambien] 10 mg PO BEDTIME Metoprolol Tartrate 100 mg PO BID Sertraline HCl 50 mg PO BEDTIME Aspirin EC Tab 81 mg PO QPM Meloxicam 15 mg PO QAM Oxycodone HCl/Acetaminophen [Oxycodone-Acetaminophen 10-325] 1 tablet PO BID Rosuvastatin Calcium 10 mg PO BEDTIME - Follow Up or Referral - Forms/Instructions Exam - Constitutional Vitals: Period Temp Pulse Resp BP Sys/Weller Pulse Ox Last 24 Hr 97.1 F-98.3 F 48-85 16-20 120-162/64-94 94-100 Discharge Results Procedures and tests throughout hospitalization: Pending Orders 03/07/17 13:56 Occult Blood, Stool Routine Labs on day of discharge: Labs from last 24 hours 03/09/17 03:05 Sodium 141 Potassium 4.1 Chloride 108 H Carbon Dioxide 25 Anion Gap 12.1 BUN 17 Creatinine 1.20 H GFR Calculation 55 BUN/Creatinine Ratio 14.00 Glucose 97 Calculated Osmolality 282.3 Calcium 8.6 DS: Provider Date of admission: 03/04/17 12:14 Primary care physician: Lew Dias Attending physician on admission: Lon Gayle Consults: 03/04/17 12:58 Consult to Case Mgmt/Social Srvs [CONS] Routine Reason for Case Mgmt/Social Srvs: Discharge Planning Consult to Occupational Therapy [CONS] Routine Reason for Occupational Therapy: Evaluate and Treat Consult Comment: For Swing Bed Placement Consult to Physical Therapy [CONS] Routine Reason for Physical Therapy: Evaluate and Treat 03/05/17 10:26 Consult to Case Mgmt/Social Srvs [CONS] Routine Reason for Case Mgmt/Social Srvs: Discharge Planning Consult Comment: Probable discharge 03/07/17 Consult to Physical Therapy [CONS] Routine Reason for Physical Therapy: Evaluate and Treat Consult Comment: For Swing Bed Placement 03/07/17 09:37 Consult to Case Mgmt/Social Srvs [CONS] Routine Reason for Case Mgmt/Social Srvs: Swingbed/SNF/Snf Discharging clinician: Lon Gayle
[2017-03-09 11:29] VITALS: BP 155/93
== END 2017-03-09 13:50 | disposition swing bed (61) | DRG 689 ==
LOC: EDUNIT# → N.ED 08:42 → N.EDINP 12:14 → N.3E 13:58